=== PATIENT | male | born 1975 | race Caucasian/White ===

== ENCOUNTER 2017-08-01 | Inpatient (IN) | payer OTHER ==
[~2017-08-01] VITALS: Ht 188 cm; Wt 94.8 kg
[2017-08-01] VITALS (24 sets, daily range): BP systolic 98–146; BP diastolic 59–104
[~2017-08-01] MED LIST: ATIVAN1 MG PO; CHLORDIAZEPOXID10 MG PO; CHLORDIAZEPOXID25 M1 PO; NEURONTIN300 MG PO; PRENATAL PO; VITAMIN B-1100 M1 PO; VITAMIN B-1100 M2 PO
[2017-08-01 00:34] LABS: HEMATOCRIT 42.3 % (42.0-52.0); HEMOGLOBIN 14.7 gm/dL (14.0-18.0); MCH 29.6 pg (26.0-34.0); MCHC 34.8 g/dL (28.0-37.0); MCV 84.9 fL (80.0-100.0); RBC 4.98 mil/uL (4.50-6.00); RDW 14.5 % (10.5-14.5); WBC 6.1 thou/uL (4.0-11.0)
[2017-08-01 00:43] LABS: CALCIUM 8.6 mg/dL (8.5-10.1); CREATININE 0.8 mg/dL (0.7-1.3); POTASSIUM 3.9 mmol/L (3.5-5.1)
[2017-08-01 00:49] LABS: ALBUMIN 3.9 g/dL (3.4-5.0); TOTAL BILIRUBIN 0.6 mg/dL (<0.1-1.0); TOTAL PROTEIN 8.1 g/dL (6.4-8.2)
[2017-08-01 02:09] LABS: MAGNESIUM 2.4 mg/dL (1.8-2.4); PHOSPHORUS 3.7 mg/dL (2.5-4.9)
[2017-08-01 02:36] LABS: FOLIC ACID 18.2 ng/mL (8.6-58.9)
[2017-08-02] VITALS (23 sets, daily range): BP systolic 106–145; BP diastolic 69–113
[2017-08-03] VITALS (22 sets, daily range): BP systolic 92–136; BP diastolic 72–105
[2017-08-03 06:00] LABS: CALCIUM 8.5 mg/dL (8.5-10.1); CREATININE 0.8 mg/dL (0.7-1.3); MAGNESIUM 2.1 mg/dL (1.8-2.4); POTASSIUM 3.6 mmol/L (3.5-5.1)
[2017-08-04 07:00] VITALS: BP 125/88
[2017-08-04 08:00] VITALS: BP 129/90
[2017-08-04 09:00] VITALS: BP 131/101
[2017-08-04 09:26] VITALS: BP 115/96
[2017-08-04] MEDS ORDERED: CHLORDIAZEPOXID25 M1 PO (09:35)
[2017-08-04] MEDS ORDERED: VITAMIN B-1100 M2 PO (09:35)
[2017-08-04] MEDS ORDERED: CATAPRES0.1 MG PO (09:35)
[2017-08-04] MEDS ORDERED: PRENATAL PO (09:36)
[2017-08-04 09:41] VITALS: BP 115/96
== END 2017-08-04 10:33 | disposition home or self-care (01) | DRG 897 ==
LOC: ER → EROBS 00:55 → ICU 00:55
PROVIDERS: Emergency Medicine; Nurse Practitioner Family
DX: F10.239 Alcohol dependence with withdrawal, unspecified (principal); F41.9 Anxiety disorder, unspecified; F32.9 Major depressive disorder, single episode, unspecified; K76.0 Fatty (change of) liver, not elsewhere classified; Z71.41 Alcohol abuse counseling and surveillance of alcoholic; Z79.899 Other long term (current) drug therapy; Z83.3 Family history of diabetes mellitus; Z80.42 Family history of malignant neoplasm of prostate
CPT/HCPCS: 10078